=== PATIENT | female | born 1930 | race Caucasian/White ===

== ENCOUNTER 2017-05-09 15:50 | Inpatient (IN) | payer OTHER, MEDICAID ==
[~2017-05-09] VITALS: Ht 167.6 cm; Wt 80.4 kg
[~2017-05-09 15:50] MED LIST: PRO20T PO; [UNRECOGNIZED DRUG - CODE] PO
[2017-05-09 16:31] LABS: Basophils # (auto) 0 uL; Basophils % (auto) 0.3 % (0.0-2.0); CONDITION Y; Eosinophils # (auto) 0.2 uL; Eosinophils % (auto) 1.4 % (0.0-7.0); Hematocrit 31.4 % (36.0-46.0); Hemoglobin 10.8 g/dL (12.2-16.2); Lymphocytes # (auto) 1.1 uL; Lymphocytes % (auto) 10.2 % (10.0-50.0); Mean Corpuscular Hemoglobin 29.8 pg (28.0-32.0); Mean Corpuscular Hgb Conc. 34.3 g/dL (32.0-36.0); Mean Corpuscular Volume 86.8 fL (80.0-100.0); Mean Platelet Volume 7.3 fL (7.4-10.4); Monocytes # (auto) 0.5 uL; Monocytes % (auto) 5.1 % (0.0-12.0); Neutrophils # (auto) 8.9 uL; Platelet Count (auto) 352 10^3/uL (140-450); Red Cell Distribution Width 15.4 % (11.6-16.0); White Blood Cell 10.8 10^3/uL (4.4-10.8)
[2017-05-09 16:49] LABS: Albumin 2.5 g/dL (3.4-5.0); BUN/Creatinine Ratio 15.6; Potassium 3.5 mmol/L (3.5-5.1)
[2017-05-09 16:52] LABS: Bilirubin, Total 0.4 mg/dL (0.2-1.0); Total Protein 7.2 g/dL (6.4-8.2)
[2017-05-10] MEDS ORDERED: VANCOMYCIN PER PHARMACY 0 MG IV SCH
[2017-05-10] MEDS ORDERED: NITROGLYCERIN 0.4 MG SL TAB SL PRN
[2017-05-10] MEDS ORDERED: MORPHINE SULFATE 4 MG/ML SYRG IV PRN
[2017-05-10] MEDS ORDERED: VANCOMYCIN 1GM/250ML D5W 250 ML IV ONE (00:15)
[2017-05-10] MEDS: MORPHINE SULFATE 4 MG/ML SYRG IV PRN ×6 (00:17→22:47)
[2017-05-10] MEDS: SODIUM CHLORIDE 0.9% 1,000 ML IV SCH ×2 (00:18→12:14)
[2017-05-10] MEDS: PIPERACILLIN-TAZOB 3.375GM 100 ML IV SCH ×4 (00:18→18:08)
[2017-05-10] MEDS: ONDANSETRON HCL 4 MG/2 ML VIAL IV PRN ×3 (00:18→01:32)
[2017-05-10 03:50] LABS: Basophils # (auto) 0 uL; CONDITION Y; Eosinophils # (auto) 0.2 uL; Eosinophils % (auto) 1.8 % (0.0-7.0); Hematocrit 27.8 % (36.0-46.0); Hemoglobin 9.4 g/dL (12.2-16.2); Mean Corpuscular Hemoglobin 29.7 pg (28.0-32.0); Mean Corpuscular Hgb Conc. 33.7 g/dL (32.0-36.0); Mean Corpuscular Volume 88.1 fL (80.0-100.0); Mean Platelet Volume 7.5 fL (7.4-10.4); Monocytes # (auto) 0.2 uL; Monocytes % (auto) 2.4 % (0.0-12.0); Neutrophils # (auto) 8.6 uL; Neutrophils % (auto) 85.8 % (37.0-80.0); Platelet Count (auto) 279 10^3/uL (140-450)
[2017-05-10 04:11] LABS: BUN/Creatinine Ratio 15.7; Calcium 7.6 mg/dL (8.5-10.1); Potassium 3.4 mmol/L (3.5-5.1)
[2017-05-10] MEDS: DOCUSATE SOD 100 MG CAP PO PRN ×2 (05:58→22:39)
[2017-05-10 06:00] VITALS: BP 135/59
[2017-05-10 09:00] VITALS: BP 123/60
[2017-05-10] MEDS: ENOXAPARIN SOD 40 MG/0.4 ML SYRINGE SC SCH (10:34)
[2017-05-10] MEDS: GABAPENTIN 300 MG CAP PO SCH ×2 (10:34→22:40)
[2017-05-10 13:00] VITALS: BP 134/69
[2017-05-10 17:00] VITALS: BP 136/72
[2017-05-10 20:00] VITALS: BP 126/54
[2017-05-10 22:03] VITALS: BP 126/54
[2017-05-11] VITALS (7 sets, daily range): BP systolic 118–135; BP diastolic 50–75
[2017-05-11] MEDS: PIPERACILLIN-TAZOB 3.375GM 100 ML IV SCH ×5 (00:03→23:33)
[2017-05-11] MEDS: SODIUM CHLORIDE 0.9% 1,000 ML IV SCH ×2 (02:28→18:45)
[2017-05-11] MEDS: VANCOMYCIN 1GM/250ML D5W 250 ML IV SCH (03:22)
[2017-05-11 05:38] LABS: Basophils # (auto) 0 uL; Basophils % (auto) 0.3 % (0.0-2.0); CONDITION Y; Eosinophils # (auto) 0.3 uL; Eosinophils % (auto) 3.6 % (0.0-7.0); Hemoglobin 8.8 g/dL (12.2-16.2); Lymphocytes % (auto) 12.8 % (10.0-50.0); Mean Corpuscular Hemoglobin 29.3 pg (28.0-32.0); Mean Corpuscular Hgb Conc. 33.6 g/dL (32.0-36.0); Mean Corpuscular Volume 87.2 fL (80.0-100.0); Mean Platelet Volume 7.4 fL (7.4-10.4); Monocytes # (auto) 0.5 uL; Monocytes % (auto) 6.2 % (0.0-12.0); Neutrophils # (auto) 5.8 uL; Neutrophils % (auto) 77.1 % (37.0-80.0); Platelet Count (auto) 270 10^3/uL (140-450); Red Cell Distribution Width 15.3 % (11.6-16.0); White Blood Cell 7.6 10^3/uL (4.4-10.8)
[2017-05-11] MEDS: MORPHINE SULFATE 4 MG/ML SYRG IV PRN (05:53)
[2017-05-11 06:06] LABS: Albumin 1.9 g/dL (3.4-5.0); BUN/Creatinine Ratio 15.1; Bilirubin, Total 0.4 mg/dL (0.2-1.0); Potassium 4.1 mmol/L (3.5-5.1); Total Protein 5.5 g/dL (6.4-8.2)
[2017-05-11 09:38] LABS: Basophils # (auto) 0 uL; Basophils % (auto) 0.2 % (0.0-2.0); CONDITION Y; Eosinophils # (auto) 0.3 uL; Eosinophils % (auto) 3.4 % (0.0-7.0); Hematocrit 28.3 % (36.0-46.0); Hemoglobin 9.7 g/dL (12.2-16.2); Lymphocytes # (auto) 0.9 uL; Mean Corpuscular Hemoglobin 29.9 pg (28.0-32.0); Mean Corpuscular Hgb Conc. 34.3 g/dL (32.0-36.0); Mean Corpuscular Volume 87.2 fL (80.0-100.0); Mean Platelet Volume 7.2 fL (7.4-10.4); Monocytes # (auto) 0.3 uL; Monocytes % (auto) 4.2 % (0.0-12.0); Neutrophils % (auto) 80.2 % (37.0-80.0); Platelet Count (auto) 302 10^3/uL (140-450); Red Cell Distribution Width 15.7 % (11.6-16.0); White Blood Cell 7.4 10^3/uL (4.4-10.8)
[2017-05-11] MEDS: GABAPENTIN 300 MG CAP PO SCH ×2 (10:00→23:10)
[2017-05-11] MEDS: ENOXAPARIN SOD 40 MG/0.4 ML SYRINGE SC SCH (10:00)
[2017-05-11 10:02] LABS: Albumin 2.1 g/dL (3.4-5.0); BUN/Creatinine Ratio 13.8; Bilirubin, Total 0.5 mg/dL (0.2-1.0); Calcium 8.3 mg/dL (8.5-10.1); Potassium 3.9 mmol/L (3.5-5.1); Total Protein 6.2 g/dL (6.4-8.2)
[2017-05-11] MEDS ORDERED: LIDOCAINE 1% HCL (LOCAL ANESTH.) INJ 20ML MDV ID ONE (15:00)
[2017-05-11 15:29] LABS: INR 1.02 (0.9-1.15); Prothrombin Time 11.1 sec (9.37-12.3)
[2017-05-11] MEDS: SODIUM CHLOR 0.9% PF (SALINE LOCK) 10ML VIAL IV SCH (23:11)
[2017-05-12] MEDS: VANCOMYCIN 1GM/250ML D5W 250 ML IV SCH (00:34)
[2017-05-12] MEDS: MORPHINE SULFATE 4 MG/ML SYRG IV PRN ×2 (00:44→16:05)
[2017-05-12] MEDS: SODIUM CHLORIDE 0.9% 1,000 ML IV SCH ×2 (05:08→20:00)
[2017-05-12 05:59] LABS: Basophils # (auto) 0 uL; Basophils % (auto) 0.5 % (0.0-2.0); CONDITION Y; Eosinophils # (auto) 0.3 uL; Eosinophils % (auto) 3.9 % (0.0-7.0); Hematocrit 27.1 % (36.0-46.0); Hemoglobin 9.2 g/dL (12.2-16.2); Lymphocytes # (auto) 1.4 uL; Lymphocytes % (auto) 19.4 % (10.0-50.0); Mean Corpuscular Hemoglobin 29.4 pg (28.0-32.0); Mean Corpuscular Volume 86.4 fL (80.0-100.0); Mean Platelet Volume 7.6 fL (7.4-10.4); Monocytes # (auto) 0.4 uL; Monocytes % (auto) 6.1 % (0.0-12.0); Neutrophils # (auto) 5.1 uL; Neutrophils % (auto) 70.1 % (37.0-80.0); Platelet Count (auto) 291 10^3/uL (140-450); Red Cell Distribution Width 15.3 % (11.6-16.0); White Blood Cell 7.2 10^3/uL (4.4-10.8)
[2017-05-12 06:19] LABS: Potassium 4.5 mmol/L (3.5-5.1)
[2017-05-12] MEDS: PIPERACILLIN-TAZOB 3.375GM 100 ML IV SCH ×4 (06:24→23:40)
[2017-05-12 06:25] LABS: BUN/Creatinine Ratio 16.7; Calcium 8.2 mg/dL (8.5-10.1)
[2017-05-12 06:29] LABS: Bilirubin, Total 0.4 mg/dL (0.2-1.0); Total Protein 6.3 g/dL (6.4-8.2)
[2017-05-12 09:00] VITALS: BP 148/72
[2017-05-12] MEDS: SODIUM CHLOR 0.9% PF (SALINE LOCK) 10ML VIAL IV SCH ×2 (09:23→21:18)
[2017-05-12] MEDS: GABAPENTIN 300 MG CAP PO SCH ×2 (09:23→21:19)
[2017-05-12] MEDS: ENOXAPARIN SOD 40 MG/0.4 ML SYRINGE SC SCH (09:23)
[2017-05-12] MEDS: ASPirin 81 mg TAB PO SCH (09:23)
[2017-05-12 13:00] VITALS: BP 138/61
[2017-05-12 16:44] VITALS: BP 132/69
[2017-05-12 20:00] VITALS: BP 148/64
[2017-05-12 22:00] VITALS: BP 148/64
[2017-05-13] MEDS: VANCOMYCIN 1GM/250ML D5W 250 ML IV SCH (01:16)
[2017-05-13] MEDS ORDERED: LIDOCAINE 2%HCL (LOCAL ANESTH.) INJ 20ML MDV ONE (02:13)
[2017-05-13] MEDS ORDERED: IODIXANOL 320MG/ML 100ML BTL IV ONE (02:13)
[2017-05-13 05:05] LABS: Basophils # (auto) 0 uL; Basophils % (auto) 0.6 % (0.0-2.0); CONDITION Y; Eosinophils # (auto) 0.3 uL; Eosinophils % (auto) 4.2 % (0.0-7.0); Hematocrit 26.5 % (36.0-46.0); Lymphocytes # (auto) 1.1 uL; Lymphocytes % (auto) 15.1 % (10.0-50.0); Mean Corpuscular Hemoglobin 29.5 pg (28.0-32.0); Mean Corpuscular Volume 86.8 fL (80.0-100.0); Mean Platelet Volume 6.8 fL (7.4-10.4); Monocytes # (auto) 0.4 uL; Neutrophils # (auto) 5.4 uL; Neutrophils % (auto) 74.1 % (37.0-80.0); Platelet Count (auto) 305 10^3/uL (140-450); Red Cell Distribution Width 15.4 % (11.6-16.0); White Blood Cell 7.4 10^3/uL (4.4-10.8)
[2017-05-13 05:30] VITALS: BP 120/52
[2017-05-13 05:35] LABS: BUN/Creatinine Ratio 14.7; Potassium 4.5 mmol/L (3.5-5.1)
[2017-05-13] MEDS: PIPERACILLIN-TAZOB 3.375GM 100 ML IV SCH ×4 (06:18→23:26)
[2017-05-13 08:00] VITALS: BP 139/58
[2017-05-13] MEDS ORDERED: ANGIOMAX 250 MG VIAL IV ONE (08:31)
[2017-05-13] MEDS ORDERED: fentaNYL CITRATE 100 MCG/2 ML VL ONE (08:31)
[2017-05-13] MEDS ORDERED: MIDAZOLAM HCL 1MG/1ML-2 ML VIAL ONE (08:31)
[2017-05-13] MEDS ORDERED: SODIUM CHL 0.9% 50 ML ONE (08:32)
[2017-05-13 09:00] VITALS: BP 126/58
[2017-05-13] MEDS: ENOXAPARIN SOD 40 MG/0.4 ML SYRINGE SC SCH (11:01)
[2017-05-13] MEDS: GABAPENTIN 300 MG CAP PO SCH ×2 (11:02→22:26)
[2017-05-13] MEDS: ASPirin 81 mg TAB PO SCH (11:02)
[2017-05-13] MEDS: SODIUM CHLOR 0.9% PF (SALINE LOCK) 10ML VIAL IV SCH ×2 (11:43→22:25)
[2017-05-13] MEDS: SODIUM CHLORIDE 0.9% 1,000 ML IV SCH ×2 (11:43→22:26)
[2017-05-13 15:05] VITALS: BP 147/62
[2017-05-13 20:00] VITALS: BP 142/71
[2017-05-13 22:00] VITALS: BP 142/71
[2017-05-14] MEDS: VANCOMYCIN 1GM/250ML D5W 250 ML IV SCH (01:22)
[2017-05-14] MEDS: PIPERACILLIN-TAZOB 3.375GM 100 ML IV SCH ×3 (04:57→18:58)
[2017-05-14] MEDS: MORPHINE SULFATE 4 MG/ML SYRG IV PRN ×3 (04:58→22:28)
[2017-05-14 05:00] VITALS: BP 173/82
[2017-05-14 08:00] VITALS: BP 145/59
[2017-05-14 09:00] VITALS: BP 145/59
[2017-05-14] MEDS: ENOXAPARIN SOD 40 MG/0.4 ML SYRINGE SC SCH (10:00)
[2017-05-14] MEDS: GABAPENTIN 300 MG CAP PO SCH ×2 (10:00→22:03)
[2017-05-14] MEDS: ASPirin 81 mg TAB PO SCH (10:00)
[2017-05-14] MEDS: SODIUM CHLOR 0.9% PF (SALINE LOCK) 10ML VIAL IV SCH ×2 (10:59→22:11)
[2017-05-14] MEDS: SODIUM CHLORIDE 0.9% 1,000 ML IV SCH ×2 (11:00→23:48)
[2017-05-14] MEDS ORDERED: ceFAZolin 1GM/50ML D5W 50 ML IV ONE (11:52)
[2017-05-14] MEDS ORDERED: ceFAZolin 1GM VL ONE (12:29)
[2017-05-14] MEDS ORDERED: BUPIVACAINE 0.75% INJ 10ML MPV SDV IJ ONE ×2 (12:29→13:19)
[2017-05-14] MEDS ORDERED: NEOMYCIN-BACITRACIN-POLYM 15GM TOP OINT TOP ONE (12:29)
[2017-05-14] MEDS ORDERED: fentaNYL CITRATE 100 MCG/2 ML VL ONE (12:48)
[2017-05-14] MEDS ORDERED: MIDAZOLAM HCL 1MG/1ML-2 ML VIAL ONE (12:48)
[2017-05-14 13:00] VITALS: BP_SYST 114; BP_SYST 125; BP_DIAS 42; BP_DIAS 58
[2017-05-14] MEDS ORDERED: PROPOFOL 10 MG/ML 20 ML IV ONE (13:18)
[2017-05-14] MEDS ORDERED: ONDANSETRON HCL 4 MG/2 ML VIAL ONE (13:18)
[2017-05-14] MEDS ORDERED: KETOROLAC TROMETH 30 MG/ML 1ML VIAL ONE (13:18)
[2017-05-14] MEDS: HYDROmorphone HCL 2 MG/ML VL ONE ×4 (13:57→14:27)
[2017-05-14] MEDS ORDERED: ONDANSETRON HCL 4 MG/2 ML VIAL IV ONE (14:30)
[2017-05-14] MEDS ORDERED: MORPHINE SULFATE 4 MG/ML SYRG IV PRN (14:30)
[2017-05-14] MEDS ORDERED: HYDROmorphone HCL 2 MG/ML VL IV PRN (14:30)
[2017-05-14 17:00] VITALS: BP 114/42
[2017-05-14] MEDS: ONDANSETRON HCL 4 MG/2 ML VIAL IV PRN (20:01)
[2017-05-14 22:00] VITALS: BP 114/50
[2017-05-15] MEDS: VANCOMYCIN 1GM/250ML D5W 250 ML IV SCH (00:34)
[2017-05-15] MEDS: PIPERACILLIN-TAZOB 3.375GM 100 ML IV SCH ×4 (01:50→17:46)
[2017-05-15] MEDS: MORPHINE SULFATE 4 MG/ML SYRG IV PRN ×3 (04:24→20:50)
[2017-05-15 04:52] VITALS: BP_SYST 127; BP_SYST 146; BP_DIAS 68; BP_DIAS 80
[2017-05-15 07:08] LABS: Basophils # (auto) 0 uL; Basophils % (auto) 0.5 % (0.0-2.0); CONDITION Y; Eosinophils # (auto) 0.2 uL; Hematocrit 26.8 % (36.0-46.0); Hemoglobin 8.9 g/dL (12.2-16.2); Lymphocytes # (auto) 1.1 uL; Lymphocytes % (auto) 14.4 % (10.0-50.0); Mean Corpuscular Hemoglobin 28.9 pg (28.0-32.0); Mean Corpuscular Hgb Conc. 33.1 g/dL (32.0-36.0); Mean Corpuscular Volume 87.2 fL (80.0-100.0); Mean Platelet Volume 7.5 fL (7.4-10.4); Monocytes # (auto) 0.5 uL; Monocytes % (auto) 6.2 % (0.0-12.0); Neutrophils # (auto) 5.7 uL; Neutrophils % (auto) 75.9 % (37.0-80.0); Platelet Count (auto) 292 10^3/uL (140-450); Red Cell Distribution Width 15.3 % (11.6-16.0); White Blood Cell 7.5 10^3/uL (4.4-10.8)
[2017-05-15 07:15] LABS: BUN/Creatinine Ratio 19.4; Magnesium 2.4 mg/dL (1.6-2.6)
[2017-05-15 08:00] VITALS: BP 128/52
[2017-05-15 09:00] VITALS: BP 115/55
[2017-05-15] MEDS: ASPirin 81 mg TAB PO SCH (09:38)
[2017-05-15] MEDS: SODIUM CHLOR 0.9% PF (SALINE LOCK) 10ML VIAL IV SCH ×2 (09:38→21:09)
[2017-05-15] MEDS: GABAPENTIN 300 MG CAP PO SCH ×2 (09:38→20:48)
[2017-05-15] MEDS: ENOXAPARIN SOD 40 MG/0.4 ML SYRINGE SC SCH (09:39)
[2017-05-15] MEDS: SODIUM CHLORIDE 0.9% 1,000 ML IV SCH (12:00)
[2017-05-15 13:00] VITALS: BP 128/52
[2017-05-15 17:00] VITALS: BP 134/64
[2017-05-15 21:48] VITALS: BP 154/68
[2017-05-16] MEDS: VANCOMYCIN 1GM/250ML D5W 250 ML IV SCH (00:47)
[2017-05-16] MEDS: MORPHINE SULFATE 4 MG/ML SYRG IV PRN ×4 (01:26→22:19)
[2017-05-16] MEDS: PIPERACILLIN-TAZOB 3.375GM 100 ML IV SCH ×4 (02:00→17:39)
[2017-05-16] MEDS: SODIUM CHLORIDE 0.9% 1,000 ML IV SCH ×3 (02:28→23:13)
[2017-05-16 05:05] VITALS: BP 148/65
[2017-05-16 08:00] VITALS: BP 142/68
[2017-05-16 09:00] VITALS: BP 142/68
[2017-05-16] MEDS: ENOXAPARIN SOD 40 MG/0.4 ML SYRINGE SC SCH (10:08)
[2017-05-16] MEDS: SODIUM CHLOR 0.9% PF (SALINE LOCK) 10ML VIAL IV SCH ×2 (10:08→22:18)
[2017-05-16] MEDS: ASPirin 81 mg TAB PO SCH (10:08)
[2017-05-16] MEDS: GABAPENTIN 300 MG CAP PO SCH ×2 (10:08→22:19)
[2017-05-16] MEDS: MULTIPLE VITAMINS W/ MINERALS TAB PO SCH (12:59)
[2017-05-16 13:00] VITALS: BP 138/61
[2017-05-16] MEDS: CALCIUM CARB 500 MG CHEW TAB PO PRN (15:43)
[2017-05-16 17:00] VITALS: BP 136/64
[2017-05-16] MEDS: PRO-STAT 64 30ML PO SCH (17:40)
[2017-05-16 21:47] VITALS: BP 136/54
[2017-05-16] MEDS: ASCORBIC ACID 500 MG TAB PO SCH (22:19)
[2017-05-17] MEDS: PIPERACILLIN-TAZOB 3.375GM 100 ML IV SCH ×4 (01:50→18:14)
[2017-05-17] MEDS: VANCOMYCIN 1GM/250ML D5W 250 ML IV SCH (02:00)
[2017-05-17 05:00] VITALS: BP 126/51
[2017-05-17] MEDS: PRO-STAT 64 30ML PO SCH ×2 (08:21→18:14)
[2017-05-17 09:00] VITALS: BP 148/58
[2017-05-17] MEDS: MULTIPLE VITAMINS W/ MINERALS TAB PO SCH (09:10)
[2017-05-17] MEDS: DOCUSATE SOD 100 MG CAP PO PRN (09:10)
[2017-05-17] MEDS: GABAPENTIN 300 MG CAP PO SCH ×2 (09:10→21:39)
[2017-05-17] MEDS: ASCORBIC ACID 500 MG TAB PO SCH ×2 (09:10→21:40)
[2017-05-17] MEDS: MORPHINE SULFATE 4 MG/ML SYRG IV PRN ×3 (09:11→18:15)
[2017-05-17] MEDS: ENOXAPARIN SOD 40 MG/0.4 ML SYRINGE SC SCH (09:11)
[2017-05-17] MEDS: ASPirin 81 mg TAB PO SCH (09:11)
[2017-05-17] MEDS: SODIUM CHLOR 0.9% PF (SALINE LOCK) 10ML VIAL IV SCH ×2 (09:11→21:54)
[2017-05-17 13:00] VITALS: BP 149/62
[2017-05-17] MEDS: CALCIUM CARB 500 MG CHEW TAB PO PRN (13:30)
[2017-05-17 17:00] VITALS: BP 137/53
[2017-05-17] MEDS: SODIUM CHLORIDE 0.9% 1,000 ML IV SCH (18:14)
[2017-05-17] MEDS ORDERED: ZOLPIDEM TARTRATE 5 MG TAB PO PRN (20:00)
[2017-05-17] MEDS ORDERED: HYDROcodone-ACET 5/325MG TAB PO PRN (20:00)
[2017-05-17 22:00] VITALS: BP 140/60
[2017-05-18] MEDS: VANCOMYCIN 1GM/250ML D5W 250 ML IV SCH (00:41)
[2017-05-18] MEDS: PIPERACILLIN-TAZOB 3.375GM 100 ML IV SCH ×3 (01:40→11:55)
[2017-05-18 05:30] VITALS: BP 146/66
[2017-05-18 06:44] LABS: Basophils # (auto) 0 uL; Basophils % (auto) 0.5 % (0.0-2.0); CONDITION Y; Eosinophils # (auto) 0.3 uL; Eosinophils % (auto) 4.3 % (0.0-7.0); Hematocrit 27.7 % (36.0-46.0); Hemoglobin 9.3 g/dL (12.2-16.2); Lymphocytes % (auto) 15.6 % (10.0-50.0); Mean Corpuscular Hemoglobin 29.3 pg (28.0-32.0); Mean Corpuscular Hgb Conc. 33.6 g/dL (32.0-36.0); Mean Corpuscular Volume 87.1 fL (80.0-100.0); Mean Platelet Volume 7.6 fL (7.4-10.4); Monocytes # (auto) 0.4 uL; Monocytes % (auto) 6.5 % (0.0-12.0); Neutrophils # (auto) 4.7 uL; Neutrophils % (auto) 73.1 % (37.0-80.0); Platelet Count (auto) 293 10^3/uL (140-450); Red Cell Distribution Width 15.7 % (11.6-16.0); White Blood Cell 6.4 10^3/uL (4.4-10.8)
[2017-05-18 07:04] LABS: Calcium 8.2 mg/dL (8.5-10.1); Potassium 4.1 mmol/L (3.5-5.1)
[2017-05-18 09:00] VITALS: BP 130/57
[2017-05-18] MEDS: SODIUM CHLORIDE 0.9% 1,000 ML IV SCH (09:40)
[2017-05-18] MEDS: GABAPENTIN 300 MG CAP PO SCH (09:40)
[2017-05-18] MEDS: SODIUM CHLOR 0.9% PF (SALINE LOCK) 10ML VIAL IV SCH (09:40)
[2017-05-18] MEDS: MULTIPLE VITAMINS W/ MINERALS TAB PO SCH (09:40)
[2017-05-18] MEDS: PRO-STAT 64 30ML PO SCH (09:40)
[2017-05-18] MEDS: ASPirin 81 mg TAB PO SCH (09:40)
[2017-05-18] MEDS: ASCORBIC ACID 500 MG TAB PO SCH (09:41)
[2017-05-18] MEDS: ENOXAPARIN SOD 40 MG/0.4 ML SYRINGE SC SCH (09:41)
[2017-05-18] MEDS: CALCIUM CARB 500 MG CHEW TAB PO PRN (09:47)
[2017-05-18 13:00] VITALS: BP 131/59
== END 2017-05-18 15:15 | disposition hospice, home (50) | DRG 255 ==
LOC: ER 16:13 → OVERFLOW 16:14 → WEST WING 05-10 05:26
PROVIDERS: ADMIT Hospitalist; ATTEND Hospitalist
PROC: 02HV33Z Insertion of Infusion Device into Superior Vena Cava, Percutaneous Approach (ICD-10-PCS; 2017-05-11)
PROC: B41D1ZZ Fluoroscopy of Aorta and Bilateral Lower Extremity Arteries using Low Osmolar Contrast (ICD-10-PCS; principal; 2017-05-13)
PROC: 0Y6P0Z1 Detachment at Right 1st Toe, High, Open Approach (ICD-10-PCS; 2017-05-14)
PROC: 0Y6T0Z1 Detachment at Right 3rd Toe, High, Open Approach (ICD-10-PCS; 2017-05-14)
PROC: 0Y6R0Z1 Detachment at Right 2nd Toe, High, Open Approach (ICD-10-PCS; 2017-05-14)
DX: I70.235 Atherosclerosis of native arteries of right leg with ulceration of other part of foot (principal); E43 Unspecified severe protein-calorie malnutrition; M86.8X7 Other osteomyelitis, ankle and foot; L03.031 Cellulitis of right toe; L97.514 Non-pressure chronic ulcer of other part of right foot with necrosis of bone; R27.0 Ataxia, unspecified; G62.9 Polyneuropathy, unspecified; K59.00 Constipation, unspecified; G89.29 Other chronic pain; H40.9 Unspecified glaucoma; I10 Essential (primary) hypertension; K21.9 Gastro-esophageal reflux disease without esophagitis; M85.80 Other specified disorders of bone density and structure, unspecified site; E78.5 Hyperlipidemia, unspecified; D64.9 Anemia, unspecified; H54.42 Blindness, left eye, normal vision right eye; L89.899 Pressure ulcer of other site, unspecified stage; E66.9 Obesity, unspecified; I25.2 Old myocardial infarction; Z68.28 Body mass index [BMI] 28.0-28.9, adult
CPT/HCPCS: 36415; 36569; 71010; 73630; 80048; 80053; 80202; 83735; 84100; 85025; 85610; 85652; 86141; 87070; 87075; 87205; 88311; 93005; 93926; 93971; 99152; C1769; J0690; J1885; J2250; J2405; J2543; J2704; J3490; Q9967